=== PATIENT | male | born 1955 | race Caucasian/White ===

== ENCOUNTER 2019-12-20 16:03 | Emergency (ER) | payer MEDICARE ==
[2019-12-20 17:21] LABS: Hemoglobin 13.7 g/dL (14.0-18.0); Mean Corpuscular HGB CONC 34.4 g/dL (32.0-36.0); Mean Corpuscular Volume 98.9 fL (78.0-98.0); Platelet Count 306 thou/uL (130-400); RBC Distribution Width 13.2 % (11.5-14.5); Red Blood Cell (RBC) Count 4.03 mill/uL (4.70-6.10); White Blood Cell (WBC) Count 5.6 thou/uL (4.8-10.8)
[2019-12-20 17:38] LABS: Anion Gap 13 mmol/L (10-20); BUN (Urea Nitrogen) 18 mg/dL (8.4-25.7); Calc. Creatinine Clearance 0 mL/min (70-130); Calcium 8.6 mg/dL (7.8-10.44); Carbon Dioxide 22 mmol/L (23-31); Chloride 108 mmol/L (98-107); Estimated GFR-MDRD 64; Glucose 91 mg/dL (80-115); Potassium 3.7 mmol/L (3.5-5.1); Sodium 139 mmol/L (136-145)
[2019-12-20 17:48] LABS: Band 2 % (5-11); Eosinophils 3 % (0-10); Lymphocytes 22 % (21-51); MDiff Complete? YES; Monocytes 15 % (0-10); Neutrophil 52 % (42-75); Platelet Morphology Comment Appears Adequate; Reactive Lymphocytes 5 % (0-10)
== END 2019-12-20 19:19 | disposition home or self-care (01) ==
LOC: ERS 16:03
DX: T67.5XXA Heat exhaustion, unspecified, initial encounter (principal); E86.0 Dehydration; F41.9 Anxiety disorder, unspecified; I10 Essential (primary) hypertension; I25.2 Old myocardial infarction; F17.220 Nicotine dependence, chewing tobacco, uncomplicated; Z86.73 Personal history of transient ischemic attack (TIA), and cerebral infarction without residual deficits
CPT/HCPCS: 36415; 80048; 82550; 83735; 85025; 93005; 96360; 96361